=== PATIENT | male | born 1955 | race Caucasian/White ===

== ENCOUNTER 2021-05-08 12:30 | Inpatient (IN) | payer MEDICARE, MEDICAID ==
[~2021-05-08] VITALS: Ht 185.4 cm; Wt 67.3 kg
[2021-05-08 13:46] LABS: BASOPHILS % (AUTO) 0.1 % (0-1); EOSINOPHILS % (AUTO) 0 % (0-6); HEMATOCRIT 34.1 % (42.0-52.0); HEMOGLOBIN 11.7 g/dl (14.0-17.9); LYMPHOCYTES % (AUTO) 12.7 % (21-51); MEAN CORPUSCULAR HEMOGLOBIN 31.6 PG (27.0-31.0); MEAN CORPUSCULAR HGB CONC 34.5 g/dL (33.0-36.5); MEAN CORPUSCULAR VOLUME 91.8 FL (78-98); MEAN PLATELET VOLUME 9.1 FL (7.4-10.4); MONOCYTES # (AUTO) 0.6 X10'3 (0-0.9); MONOCYTES % (AUTO) 6.9 % (2-12); NEUTROPHILS # (AUTO) 6.4 X10'3 (1.8-7.7); NEUTROPHILS % (AUTO) 80.3 % (42-75); PLATELET COUNT 132 X10'3 (140-440); RED BLOOD COUNT 3.71 X10'6 (4.70-6.10); RED CELL DISTRIBUTION WIDTH 14.4 % (11.5-14.5)
[2021-05-08 14:01] LABS: ALANINE AMINOTRANSFERASE 24 U/L (12-78); ALBUMIN 2.4 G/DL (3.4-5.0); ALBUMIN/GLOBULIN RATIO 0.7 (1.1-1.5); ALKALINE PHOSPHATASE 43 IU/L (46-116); ANION GAP 11 (8-16); ASPARTATE AMINO TRANSFERASE 23 U/L (10-37); BILIRUBIN,TOTAL 0.3 MG/DL (0.1-1.0); BLOOD UREA NITROGEN 18 MG/DL (7-18); BUN/CREATININE RATIO 19.8 (5.4-32.0); CALCIUM 7.7 MG/DL (8.5-10.1); CHLORIDE 107 MMOL/L (99-107); CREATININE 0.91 MG/DL (0.60-1.10); GLUCOSE 171 MG/DL (70-104); POTASSIUM 3.9 MMOL/L (3.5-5.1); SODIUM 141 MMOL/L (135-145); TOTAL CARBON DIOXIDE 23.4 MMOL/L (24-32); eGFR 83 ML/MIN
[2021-05-09] MEDS ORDERED: aspirin 325mg tablet PO ONE (01:20)
[2021-05-09] MEDS ORDERED: acetaminophen 325mg tablet PO PRN (02:45)
[2021-05-09] MEDS ORDERED: ondansetron/PF 4mg/2ml inj IV PRN (02:45)
[2021-05-09] MEDS ORDERED: magnesium hydroxide 30ml (MOM) UD suspension PO PRN (02:45)
[2021-05-09] MEDS ORDERED: potassium Cl 40MEQ/1/2NS 520ml 520 ML IV PRN ×2 (02:45)
[2021-05-09] MEDS ORDERED: mag hydrox/Alum hydrox/simeth 30ml oral suspension PO PRN (02:45)
[2021-05-09] MEDS ORDERED: potassium Cl 20 mEq SR tablet PO PRN ×2 (02:45)
[2021-05-09] MEDS ORDERED: CLOZ100T31 PO (03:15)
[2021-05-09] MEDS ORDERED: CALC300T4 PO (03:15)
[2021-05-09] MEDS ORDERED: LEVO100T PO (03:15)
[2021-05-09] MEDS ORDERED: QUET50TA24 PO (03:15)
[2021-05-09] MEDS ORDERED: ATOR20TA PO (03:15)
[2021-05-09] MEDS ORDERED: FENO54TA4 PO (03:15)
[2021-05-09] MEDS ORDERED: DIVA-37 PO (03:15)
[2021-05-09] MEDS ORDERED: DIAZ10TA4 PO (03:15)
[2021-05-09] MEDS ORDERED: BUSP10TA3 PO (03:15)
[2021-05-09] MEDS ORDERED: CLOZ100T21 PO (03:15)
[2021-05-09] MEDS ORDERED: MULT-1074 PO (03:15)
[2021-05-09] MEDS ORDERED: diazepam 5mg tablet PO PRN (04:25)
[2021-05-09] MEDS ORDERED: QUEtiapine 25mg tablet PO PRN (04:25)
[2021-05-09] MEDS ORDERED: heparin, porcine 5000 units/ml vial SQ SCH (08:00)
[2021-05-09] MEDS ORDERED: levoTHYROXINE 100mcg tablet PO SCH (08:00)
[2021-05-09] MEDS ORDERED: busPIRone 5mg tablet PO SCH (08:00)
[2021-05-09] MEDS ORDERED: docusate sod 100mg capsule PO SCH (08:00)
[2021-05-09] MEDS ORDERED: clozapine 100mg tablet PO SCH ×2 (08:00→21:00)
[2021-05-09] MEDS ORDERED: K and/or MAG REPLACEMENT MC SCH (08:00)
[2021-05-09] MEDS ORDERED: fenofibrate 48mg tablet PO SCH (08:30)
--- NOTE | 2021-05-09 09:48 | NUR ---
REPORTED TO DR. DILLARD PT WITH LOW GRADE FEVER AND COUGH. RECEIVED VO TO RAPID COVID TEST PT.
[2021-05-09] MEDS ORDERED: levoFLOXACIN 750MG TABLET PO ONE (11:40)
[2021-05-09 12:00] VITALS: BP 143/78
--- NOTE | 2021-05-09 13:18 | NUR ---
Spoke with Stephany at [facility], state that are able to isolate patient in senior care setting, updated on patient status, states she will pick him up when ready for discharge
--- NOTE | 2021-05-09 13:29 | NUR ---
updated nurse on discharge plan
[2021-05-09] MEDS ORDERED: LEVO750T46 PO (14:32)
--- NOTE | 2021-05-09 15:13 | NUR ---
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
--- NOTE | 2021-05-09 17:35 | NUR ---
PT'S PHARMACHY IS CLOSED, LEFT MESSAGE ON PHARMACHY VOICE MAIL AT [facility]ARM[facility] FOR LEVAQUIN 750MG, I TAB PO DAILY x7 DAYS, PERSCRIBER IS DR DILLARD. PT HAS BEEN NOTIFIED.
--- NOTE | 2021-05-09 19:50 | NUR ---
PT DISCHARGED HOME
[2021-05-09] MEDS ORDERED: atorvastatin 20mg tablet PO SCH (21:00)
[2021-05-09] MEDS ORDERED: divalproex sodium 500mg tablet.DR PO SCH (21:00)
[2021-05-10] MEDS ORDERED: levoFLOXACIN 750MG TABLET PO SCH (11:00)
== END 2021-05-09 15:00 | disposition home or self-care (01) | DRG 177 ==
LOC: ER 12:30 → UNDOADMIN 05-09 02:46 → ED HOLD 05-09 02:46 → UNDODISIN 05-09 15:00
PROVIDERS: ADMIT Internal Medicine; ATTEND Internal Medicine
DX: U07.1 COVID-19 (principal); J18.9 Pneumonia, unspecified organism; E03.9 Hypothyroidism, unspecified; W06.XXXA Fall from bed, initial encounter; R26.2 Difficulty in walking, not elsewhere classified; M79.604 Pain in right leg; M79.605 Pain in left leg; E78.5 Hyperlipidemia, unspecified; G25.0 Essential tremor; Z79.899 Other long term (current) drug therapy; Z88.0 Allergy status to penicillin; Z88.8 Allergy status to other drugs, medicaments and biological substances; Y92.003 Bedroom of unspecified non-institutional (private) residence as the place of occurrence of the external cause; Y93.89 Activity, other specified; Y99.8 Other external cause status
CPT/HCPCS: 36415; 70450; 71045; 72125; 80053; 85025; 87635; 99285; G0378; J1644